=== PATIENT | male | born 1975 | race American Indian/Alaskan Native ===

== ENCOUNTER 2016-12-26 14:43 | Emergency (ER) | payer OTHER ==
[2016-12-26 14:58] VITALS: RESP 16; TEMP 97.8
[2016-12-26] MEDS ORDERED: Naproxen 550 mg Tab PO STA (15:28)
[2016-12-26] MEDS ORDERED: Neomycin/Polymyxin/Hydrocort Otic Susp (10 ml) AD STA (15:28)
--- NOTE | 2016-12-26 15:32 | ED PDOC ---
Arrival/HPI - General Chief Complaint: ENT Problem Time Seen by Provider: 12/26/16 15:05 Historian: Patient - History of Present Illness Narrative History of Present Illness (Text): 12/26/16 15:29 Patient w/ h/o Diabetes, controlled w/ diet & exercise, reports 2 day history of right ear pain, states symptoms developed after getting water in his right ear yesterday. Reports (-) recent URI symptoms, (-) drainiage, (+) decrease in hearing to R ear. Otherwise: (-) fever, (-) headache. Patient has no other complaints. Past Medical History - Provider Review Nursing Documentation Reviewed: Yes - Infectious Disease Hx of Infectious Diseases: None - Endocrine/Metabolic Hx Diabetes Mellitus Type 2: Yes - Psychiatric Hx Substance Use: No Family/Social History - Physician Review Nursing Documentation Reviewed: Yes Family/Social History: No Known Family HX Smoking Status: Never Smoked Hx Alcohol Use: Yes Frequency of alcohol use: Socially Hx Substance Use: No Allergies/Home Meds Allergies/Adverse Reactions: Allergies No Known Allergies Allergy (Verified 12/26/16 14:58) Review of Systems - Review of Systems Constitutional: Normal. absent: Fatigue, Weight Change, Fevers ENT: Normal, Other (R ear pain) Respiratory: Normal. absent: SOB, Cough, Sputum Musculoskeletal: Normal. absent: Arthralgias, Back Pain, Neck Pain Skin: Normal. absent: Rash, Pruritis, Skin Lesions Physical Exam - Physical Exam Narrative Physical Exam (Text): 12/26/16 15:31 GENERAL APPEARANCE: Patient is awake, alert, oriented x 3, in mild painful distress. SKIN: Warm, dry; (-) cyanosis. ENMT: Canals : (+) erythema, edema and exudates to the R ear canal, (+) cerumen impaction to the L ear canal, TMs: both not visible. Frontal / maxillary sinuses : (-) tenderness. (-) TMJ tenderness. Pharynx: Clear; (-) erythema, (- ) exudate. Airway patent: (-) stridor. NECK: (-) stiffness, (-) tenderness, (-) lymphadenopathy. LUNGS: clear, (-) wheezing, (-) rhonchi. CARDIAC: RRR, (-) murmurs, (-) gallops. Vital Signs Temp Pulse Resp BP Pulse Ox 12/26/16 14:54 97.8 F 100 H 16 120/70 98 Medical Decision Making ED Course and Treatment: 12/26/16 15:32 41 yo M w/ h/o Diabetes, controlled w/ diet & exercise, reports 2 day history of right ear pain, states symptoms developed after getting water in his right ear yesterday. On exam, patient is noted to have otitis externa to the right ear, unable to visualize the right TM, patient also has cerumen impaction to the left ear canal. Diagnosis of otitis externa explained to the patient. Patient medicated with naproxen po and Cortisporin otic. Prescriptions provided. Based on history , exam and diagnostic results plan will be for outpatient follow-up with ENT referral. Patient advised to follow up with primary care physician or ENT referral in 1-2 days without fail. Advised to take medication as prescribed. Return to the emergency room at any time for any new or worsening symptoms. Patient states he fully agrees with and understands discharge instructions. States that he agrees with the plan and disposition. Verbalized and repeated discharge instructions and plan. I have given the patient opportunity to ask any additional questions. - Medication Orders Current Medication Orders: Discontinued Medications Naproxen (Anaprox Ds) 550 mg PO ONCE STA Stop: 12/26/16 15:29 Last Admin: 12/26/16 15:51 Dose: 550 mg Neomycin/Polymyxin/Hydrocortisone (Cortisporin Otic Susp) 2 ml AD STAT STA Stop: 12/26/16 15:29 Last Admin: 12/26/16 15:51 Dose: 4 drop - PA / AUTOMOTIVE BRAKE TECHNICIAN / Resident Statement MD/DO has reviewed & agrees with the documentation as recorded. Disposition/Present on Arrival - Present on Arrival Any Indicators Present on Arrival: No History of DVT/PE: No History of Uncontrolled Diabetes: No Urinary Catheter: No History of Decub. Ulcer: No History Surgical Site Infection Following: None - Disposition Have Diagnosis and Disposition been Completed?: Yes Diagnosis: Impacted cerumen of left ear, Otitis externa of right ear Disposition: HOME/ ROUTINE Disposition Time: 15:35 Patient Plan: Discharge Patient Problems: Current Active Problems Problem Status Onset Impacted cerumen of left ear Acute Otitis externa of right ear Acute Condition: STABLE Discharge Instructions (ExitCare): Otitis Externa (ED), Cerumen Impaction (ED) Print Language: AUSTRIAN Additional Instructions: Thank you for letting us take care of you today. You were treated for otitis externa, cerumen impaction. The emergency medical care you received today was directed at your acute symptoms. If you were prescribed any medication, please fill it and take as directed. It may take several days for your symptoms to resolve. Return to the Emergency Department if your symptoms worsen, do not improve, or if you have any other problems. Please contact your doctor in 2 days for re-evaluation and follow up / or call one of the physicians/clinics you have been referred to that are listed on the Patient Visit Information form that is included in your discharge packet. Bring any paperwork you were given at discharge with you along with any medications you are taking to your follow up visit. Our treatment cannot replace ongoing medical care by a primary care provider (PCP) outside of the emergency department. Thank you for allowing the [facility] team to be part of your care today. Prescriptions: Amoxicillin 500 mg PO TID #30 tablet Carbamide Peroxide [Debrox 15 Ml] 5 drop BID #1 bottle Naproxen 500 mg PO BID #30 tab Neomycin/Polymyxin/Hydrocort [Cortisporin Otic Soln] 4 drop AD QID #1 bottle Referrals: PCP,NO [Primary Care Provider] - Follow up with primary Alex Kaye DO [Staff Provider] - Follow up with primary Forms: [employer] (Chilean), WORK NOTE
[2016-12-26 17:27] VITALS: BP 124/76; PULSE 72; O2SAT 100
== END 2016-12-26 15:54 | disposition home or self-care (01) ==
LOC: ED 14:43 → MERGE 14:43 → ED 15:54
DX: H61.22 Impacted cerumen, left ear (principal); H60.91 Unspecified otitis externa, right ear

== ENCOUNTER 2017-02-16 08:15 | Emergency (ER) | payer MEDICAID, OTHER ==
[2017-02-16 08:15] VITALS: BMI 32.8
[2017-02-16 08:28] VITALS: O2SAT 100
[2017-02-16] MEDS ORDERED: Sodium Chloride 0.9% 1,000 ML IV STA (08:35)
--- NOTE | 2017-02-16 08:41 | ED PDOC ---
Arrival/HPI - General Historian: Patient - History of Present Illness Time/Duration: > month Symptom Onset: Gradual Symptom Course: Unchanged Context: Home - General Chief Complaint: High Blood Sugar Time Seen by Provider: 02/16/17 08:17 - History of Present Illness Narrative History of Present Illness (Text): 02/16/17 08:36 41yo M PMH DM2 who presents to emergency department because he feels that his blood sugar was too high. pt has been non-compliant with his metformin and glyburide in 8 months due to insurance issues. pt states the has been been feeling weak lately. denies chest pain, shortness of breath, abdominal pain, n/v /d, recent illness, fevers/chill, neck/back pain, urinary/bowel changes. Pt has no PMD. Denies tobacco and substance use; +occasional ETOH use (Moo Stinson) Past Medical History - Provider Review Nursing Documentation Reviewed: Yes - Infectious Disease Hx of Infectious Diseases: None - Cardiac Hx Cardiac Disorders: No - Pulmonary Hx Respiratory Disorders: No - Neurological Hx Neurological Disorder: No - HEENT Hx HEENT Disorder: No - Renal Hx Renal Disorder: No - Endocrine/Metabolic Hx Diabetes Mellitus Type 2: Yes - Hematological/Oncological Hx Blood Disorders: No - Integumentary Hx Dermatological Disorder: No - Musculoskeletal/Rheumatological Hx Musculoskeletal Disorders: No - Gastrointestinal Hx Gastrointestinal Disorders: No - Genitourinary/Gynecological Hx Genitourinary Disorders: No - Psychiatric Hx Psychophysiologic Disorder: No Hx Substance Use: No - Past Surgical History Past Surgical History: No Previous - Anesthesia Hx Anesthesia: No Family/Social History - Physician Review Nursing Documentation Reviewed: Yes Family/Social History: No Known Family HX Smoking Status: Never Smoked Hx Alcohol Use: Yes Frequency of alcohol use: Socially Hx Substance Use: No Allergies/Home Meds Allergies/Adverse Reactions: Allergies No Known Allergies Allergy (Verified 03/28/16 17:21) Review of Systems - Physician Review All systems were reviewed & negative as marked: Yes - Review of Systems Constitutional: Other (generalized weakness). absent: Fevers Respiratory: absent: SOB Cardiovascular: absent: Chest Pain Gastrointestinal: absent: Abdominal Pain, Diarrhea, Nausea, Vomiting Genitourinary Male: absent: Dysuria Physical Exam Vital Signs Reviewed: Yes Appearance: Positive for: Well-Appearing Pain Distress: None Mental Status: Positive for: Alert and Oriented X 3 Finger Stick Blood Glucose: 313 - Systems Exam Head: Present: Atraumatic, Normocephalic Pupils: Present: PERRL Extroacular Muscles: Present: EOMI Conjunctiva: Present: Normal Mouth: Present: Moist Mucous Membranes Neck: Present: Normal Range of Motion Respiratory/Chest: Present: Clear to Auscultation, Good Air Exchange Cardiovascular: Present: Regular Rate and Rhythm, Normal S1, S2 Abdomen: Present: Normal Bowel Sounds. No: Tenderness, Distention Back: Present: Normal Inspection. No: CVA Tenderness Upper Extremity: Present: Normal Inspection Lower Extremity: Present: Normal Inspection. No: Edema Neurological: Present: CN II-XII Intact, Speech Normal, Motor Func Grossly Intact, Normal Sensory Function Skin: Present: Warm, Dry Psychiatric: Present: Alert, Oriented x 3 Vital Signs Temp Pulse Resp BP Pulse Ox 02/16/17 12:16 74 18 139/83 100 02/16/17 08:15 99.4 F 87 17 152/105 H 100 Medical Decision Making Re-evaluation Time: 10:31 Reassessment Condition: Re-examined, Improved - Lab Interpretations I have reviewed the lab results: Yes - EKG Interpretation Interpreted by ED Physician: Yes Type: 12 lead EKG ED Course and Treatment: 02/16/17 09:11 Seen and examined with the resident. History and physical examination reveals a gentleman who stopped all of his medications approximately 8 months ago because of insurance reasons. For the last several days he has had increasing thirst and polyuria. With generalized fatigue. (Antolin Dillard) 02/16/17 08:45 Impression: 41yo M presenting with hyperglycemia due to med non-compliance Plan: - Reassess and disposition - Labs - check AG - 1L NS - UA Progress Notes: 02/16/17 10:02 EKG: Ordered, reviewed, and independently interpreted the EKG. Rate : 77 BPM Rhythm : NSR w/ sinus arrhythmia Interpretation : No ST-segment elevations or depressions, no T-wave inversions, normal intervals. 02/16/17 10:32 Insulin 6u ordered. 02/16/17 12:01 Reassessment: pt feeling better. denies abdominal pain, n/v, chest pain or shortness of breath. is tolerating diet. will keep monitoring glucose. 02/16/17 12:22 Past emergency department notes show patient was on Metformin 1000mg BID and glyburide once daily. Patient cannot recall which pharmacy he picked up his meds from. isntructed to follow up with [facility] within 10 days and to strictly adhere to medication and measuring glucose at home (Moo Stinson) - Lab Interpretations Lab Results: 02/16/17 09:00 02/16/17 09:00 Lab Results 02/16/17 09:54: POC Glucose (mg/dL) 244 H 02/16/17 09:00: Sodium 135, Potassium 4.4, Chloride 97 L, Carbon Dioxide 26, Anion Gap 16, BUN 10, Creatinine 0.9, Est GFR ( Amer) > 60, Est GFR (Non- Af Amer) > 60, Random Glucose 347 H*, Calcium 9.5, Total Bilirubin 0.5, AST 21, ALT 32, Alkaline Phosphatase 97, Total Protein 7.1, Albumin 4.1, Globulin 2.9, Albumin/Globulin Ratio 1.4 02/16/17 09:00: Urine Color Yellow, Urine Appearance Clear, Urine pH 6.0, Ur Specific [place] 1.010, Urine Protein Negative, Urine Glucose (UA) >=1000, Urine Ketones 15 H, Urine Blood Negative, Urine Nitrate Negative, Urine Bilirubin Negative, Urine Urobilinogen 0.2, Ur Leukocyte Esterase Negative 02/16/17 09:00: WBC 6.1, RBC 5.31, Hgb 13.5 L, Hct 39.5 L, MCV 74.4 L, MCH 25.4 , MCHC 34.2, RDW 13.1, Plt Count 229, MPV 11.2 H, Gran % 69.1 H, Lymph % (Auto) 23.4, [place] % (Auto) 5.2, Eos % (Auto) 2.1, Baso % (Auto) 0.2, Gran # 4.22, Lymph # 1.4, [place] # 0.3, Eos # 0.1, Baso # 0.01 02/16/17 08:21: POC Glucose (mg/dL) 313 H - Medication Orders Current Medication Orders: Discontinued Medications Sodium Chloride (Sodium Chloride 0.9%) 1,000 mls @ 999 mls/hr IV .Q1H1M STA Stop: 02/16/17 09:35 Last Admin: 02/16/17 09:29 Dose: 999 mls/hr eMAR Start Stop Document 02/16/17 09:29 AB (Rec: 02/16/17 09:29 AB [id number]) Intravenous Solution Start Date 02/16/17 Start Time 09:29 End Date 02/16/17 End time 10:29 Total Infusion Time 60 Sodium Chloride (Sodium Chloride 0.9%) 1,000 mls @ 500 mls/hr IV ONCE ONE Stop: 02/16/17 11:54 Last Admin: 02/16/17 10:38 Dose: 500 mls/hr eMAR Start Stop Document 02/16/17 10:38 AB (Rec: 02/16/17 10:38 AB [id number]) Intravenous Solution Start Date 02/16/17 Start Time 10:38 End Date 02/16/17 End time 12:38 Total Infusion Time 120 Insulin Human Regular (Humulin R) 6 units SC ONCE STA Stop: 02/16/17 09:03 Last Admin: 02/16/17 09:24 Dose: 6 units Subcutaneous Administrations Document 02/16/17 09:24 AB (Rec: 02/16/17 09:29 AB [id number]) Injection Site MAR Injection Site Right Abdomen Charges for Administration # of Subcutaneous Administrations 1 Disposition/Present on Arrival - Present on Arrival Any Indicators Present on Arrival: No History of DVT/PE: No History of Uncontrolled Diabetes: No Urinary Catheter: No History of Decub. Ulcer: No History Surgical Site Infection Following: None - Disposition Have Diagnosis and Disposition been Completed?: Yes Disposition Time: 12:23 Patient Plan: Discharge - Disposition Diagnosis: Hyperglycemia Disposition: HOME/ ROUTINE Patient Problems: Current Active Problems Problem Status Onset Hyperglycemia Acute Condition: GOOD Discharge Instructions (ExitCare): Diabetic Hyperglycemia (ED), How to Check Your Blood Sugar (ED) Additional Instructions: - please follow up [facility] [place] 1 week - please take the medications as prescribed - please measure your blood sugar as instructed - please read the information attached and adhere to recommendations - Take the Glyburide 3 mg in the morning with your first meal of the day. This makes your pancreas secrete more insulin. - Take the Metformin 1000 mg TWICE a day with Breakfast and Dinner meals. This helps your body metabolize blood sugars better and keep sugars down - Measure your sugar with the prescribed glucometer - TRY to follow a more diabetic diet; 4-5 small meals with lower carbohydrates per day. Prescriptions: glyBURIDE [Glynase Pres-Tab] 3 mg PO DAILY #10 tab MetFORMIN [glucoPHAGE] 1,000 mg PO BID #20 tab Referrals: [facility] [Outside] - Follow up with primary Forms: [employer] (Jordanian)
[2017-02-16] MEDS ORDERED: Insulin Regular 1 UNITS/0.01 ML ML SC STA (09:02)
[2017-02-16 09:29] LABS: BASO # 0.01 K/mm3 (0.0-2.0); BASO % 0.2 % (0.0-3.0); EOS # 0.1 (0.0-0.7); EOS % 2.1 % (1.5-5.0); GRAN # 4.22 (1.4-6.5); GRAN % 69.1 % (50.0-68.0); HEMATOCRIT 39.5 % (42.0-52.0); LYMPH # 1.4 (1.2-3.4); LYMPH % 23.4 % (22.0-35.0); MEAN CELL VOLUME 74.4 fl (80.0-105.0); MEAN CORPUSCULAR HEMOGLOBIN 25.4 pg (25.0-35.0); MEAN CORPUSCULAR HGB CONC 34.2 g/dl (31.0-37.0); MEAN PLATELET VOLUME 11.2 fl (7.0-11.0); MONO # 0.3 (0.1-0.6); MONO % 5.2 % (1.0-6.0); RED CELL DISTRIBUTION WIDTH 13.1 % (11.5-14.5); URINE BILIRUBIN NEGATIVE (NEGATIVE); URINE BLOOD NEGATIVE (NEGATIVE); URINE GLUCOSE (UA) >=1000 mg/dL (NEGATIVE); URINE KETONE 15 mg/dL (NEGATIVE); URINE LEUKOCYTE ESTERASE NEGATIVE Leu/uL (NEGATIVE); URINE PROTEIN NEGATIVE mg/dL (<30 mg/dL); URINE UROBILINOGEN 0.2 E.U./dL (<1 E.U./dL); WHITE BLOOD COUNT 6.1 10^3/ul (4.5-11.0)
[2017-02-16 09:30] LABS: URINE APPEARANCE CLEAR (CLEAR); URINE COLOR YELLOW (YELLOW)
[2017-02-16 09:48] LABS: ALB/GLOB RATIO 1.4 (1.1-1.8); ALKALINE PHOSPHATASE 97 U/L (38-126); ALT/SGPT 32 U/L (7-56); AST/SGOT 21 U/L (17-59); BILIRUBIN,TOTAL 0.5 mg/dL (0.2-1.3); BLOOD UREA NITROGEN 10 mg/dL (7-21); CALCIUM 9.5 mg/dL (8.4-10.5); CARBON DIOXIDE 26 mmol/L (21-33); CHLORIDE 97 mmol/L (98-107); GFR AFRICAN-AMERICAN > 60; POTASSIUM 4.4 mmol/L (3.6-5.0); SODIUM 135 mmol/L (132-148); TOTAL PROTEIN 7.1 g/dL (5.8-8.3)
[2017-02-16] MEDS ORDERED: Sodium Chloride 0.9% 1,000 ML IV ONE (09:55)
[2017-02-16 09:59] LABS: GLUCOSE,RANDOM 347 mg/dL (70-110)
[2017-02-16 12:17] VITALS: BP 139/83; PULSE 74; RESP 18
[2017-02-16 12:44] VITALS: TEMP 98.2
--- NOTE | 2017-02-16 22:08 | CARD ---
APPROVED REPORT EKG Measurement Heart [id number] <Conclusion> Normal sinus rhythm with sinus arrhythmia Normal ECG
== END 2017-02-16 12:44 | disposition home or self-care (01) ==
LOC: ED 08:15
DX: E11.65 Type 2 diabetes mellitus with hyperglycemia (principal)
CPT/HCPCS: 80053; 81003; 82948; 85025; 93005; 96360; 96361; 99284; J7040

== ENCOUNTER 2018-04-01 17:51 | Observation (INO) | payer MEDICAID, OTHER ==
[2018-04-01 17:54] VITALS: BMI 31.8
[2018-04-01] MEDS ORDERED: Sodium Chloride 0.9% 1,000 ML IV STA (18:20)
--- NOTE | 2018-04-01 18:28 | ED PDOC ---
Arrival/HPI - General Chief Complaint: Chest Pain Historian: Patient, Spouse () - History of Present Illness Narrative History of Present Illness (Text): 04/01/18 18:18 A 42 year old male, whose past medical history includes diabetes, presents to the emergency department presenting with intermittent cramping in his finger for the past few days. Patient reports associated shortness of breath with exertion, increased urinary frequency, headache, slight neck pain, and states today he is experiencing left upper chest pain. Patient notes he has not been taking his diabetes medication due to unfavorable side effects and notes his family history includes heart problems on his mother's side. Patient denies any fever, chills, diarrhea, nausea, vomiting, urinary symptoms, back pain, dizziness, or any other complaints. No current PMD Time/Duration: 1 week (a few days) Symptom Onset: Gradual Symptom Course: Unchanged Severity Level: Moderate Activities at Onset: Light Context: Home Past Medical History - Provider Review Nursing Documentation Reviewed: Yes - Infectious Disease Hx of Infectious Diseases: None - Cardiac Hx Cardiac Disorders: No - Pulmonary Hx Respiratory Disorders: No - Neurological Hx Neurological Disorder: No - HEENT Hx HEENT Disorder: No - Renal Hx Renal Disorder: No - Endocrine/Metabolic Hx Diabetes Mellitus Type 2: Yes - Hematological/Oncological Hx Blood Disorders: No - Integumentary Hx Dermatological Disorder: No - Musculoskeletal/Rheumatological Hx Musculoskeletal Disorders: No - Gastrointestinal Hx Gastrointestinal Disorders: No - Genitourinary/Gynecological Hx Genitourinary Disorders: No - Psychiatric Hx Psychophysiologic Disorder: No Hx Substance Use: No - Past Surgical History Past Surgical History: No Previous - Anesthesia Hx Anesthesia: No Family/Social History - Physician Review Nursing Documentation Reviewed: Yes Family/Social History: Unknown Family HX Smoking Status: Never Smoked Hx Alcohol Use: Yes Hx Substance Use: No Allergies/Home Meds Allergies/Adverse Reactions: Allergies No Known Allergies Allergy (Verified 03/28/16 17:21) Review of Systems - Review of Systems Constitutional: Fatigue. absent: Fevers, Night Sweats Eyes: absent: Vision Changes ENT: absent: Hearing Changes, Sore Throat, Rhinorrhea Respiratory: SOB (shortness of breath with exertion) Cardiovascular: Chest Pain (left uppper chest pain). absent: Edema, Calf Pain, WALKER Gastrointestinal: absent: Abdominal Pain, Diarrhea, Nausea, Vomiting Genitourinary Male: Frequency (increased urinary frequency) Musculoskeletal: Neck Pain (slight neck pain), Other (bilateral cramping in fingers). absent: Back Pain Neurological: Headache. absent: Dizziness Endocrine: Polyuria, Polydipsia Hemo/Lymphatic: absent: Easy Bleeding Psychiatric: absent: Depression Physical Exam - Physical Exam Narrative Physical Exam (Text): 04/01/18 18:21 Head: Atraumatic. Normocephalic. Eyes: PERRL. EOMI. Conjunctivae are not pale. ENT: Mucous membranes are moist and intact. Oropharynx is clear and symmetric. Neck: Supple. Full ROM. No JVD. No lymphadenopathy. Cardiovascular: Regular rate. Regular rhythm. No murmurs, rubs, or gallops. Distal pulses are 2+ and symmetric. Pulmonary/Chest: No evidence of respiratory distress. Clear to auscultation bilaterally. No wheezing, rales or rhonchi. Chest wall nontender. Abdominal: Soft and non-distended. There is no tenderness. No rebound, guarding, or rigidity. No organomegaly. Good bowel sounds. Back: No CVA tenderness. Extremities: No edema. No cyanosis. No clubbing. Full range of motion in all extremities. No calf tenderness. Skin: Skin is warm and dry. No petechiae. No purpura. Neurological: Alert, awake, and oriented to person, place, time, and situation. Normal speech. No facial droop. No focal motor or sensory deficits. Psychiatric: Good eye contact. Normal interaction, affect, and behavior. Vital Signs Reviewed: Yes Vital Signs Temp Pulse Resp BP Pulse Ox 04/01/18 17:54 98.8 F 100 H 20 130/85 99 Temperature: Afebrile Blood Pressure: Normal Pulse: Tachycardic Respiratory Rate: Normal Appearance: Positive for: Well-Appearing, Non-Toxic Pain Distress: Mild Mental Status: Positive for: Alert and Oriented X 3 Medical Decision Making ED Course and Treatment: 04/01/18 18:23 Impression: 42 year old male presenting with intermittent cramping in fingers with associated shortness of breath. Developed intermittent chest discomfort today. Differential Diagnosis included but are not limited to: - Hyperglycemia - DKA - CAD - Electrolyte imbalance - Pneumonia Plan: -- ABG shock panel -- EKG -- Labs -- CBC -- COAGs -- Chest X-ray -- IV fluids -- Influenza A B stat -- Urinalysis -- Reassess and disposition Prior Visits: Notes and results from previous visits were reviewed. Progress Notes: Patient is hyperglycemic. Noncompliant with meds for several months. Current labs and exam NOT consistent with DKA although he is significantly hyperglycemic. IV fluids given. Currently comfortable at rest but reports dyspnea with exertion. Chest pain intermittently today but none currently. Plan to admit to telemetry observation for cardiac monitoring. Treatment plan reviewed with patient. 04/01/18 19:50 - EKG Interpretation EKG Interpretation (Text): 04/01/18 19:49 EKG at 1800 normal sinus rhythm rate of [address] elevations Interpreted by ED Physician: Yes Type: 12 lead EKG - Scribe Statement The provider has reviewed the documentation as recorded by the Scribe Herlinda Britton All medical record entries made by the Scribe were at my direction and personally dictated by me. I have reviewed the chart and agree that the record accurately reflects my personal performance of the history, physical exam, medical decision making, and the department course for this patient. I have also personally directed, reviewed, and agree with the discharge instructions and disposition. Disposition/Present on Arrival - Present on Arrival Any Indicators Present on Arrival: Yes History of DVT/PE: No History of Uncontrolled Diabetes: Yes Urinary Catheter: No History of Decub. Ulcer: No History Surgical Site Infection Following: None - Disposition Have Diagnosis and Disposition been Completed?: Yes Diagnosis: Hyperglycemia, Chest pain Disposition: HOSPITALIZED Disposition Time: 19:54 Patient Plan: Admission, Observation, Telemetry Patient Problems: Current Active Problems Problem Status Onset Chest pain Acute Hyperglycemia Acute Condition: FAIR Discharge Instructions (ExitCare): Chest Pain (ED) Referrals: Sandra Webb MD [Primary Care Provider] - Follow up with primary Forms: Over 40 Females (Russian)
[2018-04-01 19:05] LABS: HEMOGLOBIN 14.2 g/dL (14.0-18.0); MEAN CELL VOLUME 73.7 fl (80.0-105.0); MEAN CORPUSCULAR HEMOGLOBIN 25.4 pg (25.0-35.0); MEAN CORPUSCULAR HGB CONC 34.5 g/dl (31.0-37.0); MEAN PLATELET VOLUME 11.9 fl (7.0-11.0); RBC 5.58 10^6/uL (3.5-6.1); RED CELL DISTRIBUTION WIDTH 13.6 % (11.5-14.5); WHITE BLOOD COUNT 7.9 10^3/uL (4.5-11.0)
[2018-04-01 19:06] LABS: BASO # 0.02 K/mm3 (0.0-2.0); BASO % 0.3 % (0.0-3.0); EOS # 0.2 (0.0-0.7); EOS % 2.5 % (1.5-5.0); GRAN # 5.14 (1.4-6.5); GRAN % 64.7 % (50.0-68.0); LYMPH % 25.4 % (22.0-35.0); MONO # 0.6 (0.1-0.6); MONO % 7.1 % (1.0-6.0)
[2018-04-01 19:11] LABS: ARTERIAL BLOOD GAS HCO3 24.8 mmol/L (21-28); ARTERIAL BLOOD GAS PCO2 40 mm/Hg (35-45)
[2018-04-01 19:23] LABS: TROPONIN I < 0.01 ng/mL
[2018-04-01 19:31] LABS: ALB/GLOB RATIO 1.4 (1.1-1.8); ALBUMIN 4.1 g/dL (3.0-4.8); ALT/SGPT 32 U/L (7-56); AST/SGOT 25 U/L (17-59); BLOOD UREA NITROGEN 12 mg/dL (7-21); CALCIUM 9.4 mg/dL (8.4-10.5); GFR NON-AFRICAN AMERICAN > 60
[2018-04-01 19:33] LABS: INR 0.99; PARTIAL THROMBOPLASTIN TIME 26.2 Seconds (25.1-36.5); PROTHROMBIN TIME 11.3 SECONDS (9.4-12.5)
[2018-04-01 19:52] LABS: URINE BILIRUBIN NEGATIVE (NEGATIVE); URINE BLOOD NEGATIVE (NEGATIVE); URINE GLUCOSE (UA) >=1000 mg/dL (NEGATIVE); URINE LEUKOCYTE ESTERASE NEGATIVE Leu/uL (NEGATIVE); URINE PROTEIN NEGATIVE mg/dL (<30 mg/dL); URINE UROBILINOGEN 0.2 E.U./dL (<1 E.U./dL)
[2018-04-01 19:53] LABS: URINE APPEARANCE CLEAR (CLEAR); URINE COLOR LIGHT YELLOW (YELLOW)
[2018-04-01] MEDS ORDERED: Insulin Regular 1 UNITS/0.01 ML ML SC STA (20:03)
--- NOTE | 2018-04-01 20:07 | CARD ---
APPROVED REPORT Date of service: 04/01/2018 EKG Measurement Heart [id number] <Conclusion> Normal sinus rhythm Normal ECG
[2018-04-01] MEDS ORDERED: Dextrose 50% SYRINGE Inj (50 ml) IV PRN (20:40)
[2018-04-01 21:04] LABS: B-TYPE NATRIURETIC PEPTIDE < 11.1 pg/mL (0-450)
[2018-04-01 21:15] VITALS: O2SAT 98
[2018-04-01] MEDS: Insulin Lispro (humaLOG) MEDIUM Coverage SC SCH (22:25)
--- NOTE | 2018-04-01 22:27 | CP.PCM.HP ---
<Aureliano Tabares - Last Filed: 04/01/18 22:16> History of Present Illness - History of Present Illness History of Present Illness: Aureliano Tabares PGY1 H&P for Dr. Maldonado Pt is a 42M with PMH with DM, presenting with chest pain since 4pm today. He reports sharp L sided chest pain that is intermittent. He denies previous history of this chest pain. He was driving when this occurred. He denies loss of consciousness, dizziness, nausea, sweating, palpitations, or radiation of the pain. He also reports constipation, his baseline is 1-2 bowel movements per week, however he says over the past week his stools have been harder. He denies fever, chills, abdominal pain, vomiting, diarrhea, dysuria. SxH: denies SocH: denies tobacco, etoh, recreational drug use FamH: mom DM Allergies: NKDA Meds: denies PMD: formerly [place], lost f/u Present on Admission - Present on Admission Any Indicators Present on Admission: Yes History of Uncontrolled Diabetes: Yes Review of Systems - Review of Systems Review of Systems: as per HPI Past Patient History - Infectious Disease Hx of Infectious Diseases: None - Past Social History Smoking Status: Never Smoked - CARDIAC Hx Cardiac Disorders: No - PULMONARY Hx Respiratory Disorders: No - NEUROLOGICAL Hx Neurological Disorder: No - HEENT Hx HEENT Problems: No - RENAL Hx Chronic Kidney Disease: No - ENDOCRINE/METABOLIC Hx Diabetes Mellitus Type 2: Yes - HEMATOLOGICAL/ONCOLOGICAL Hx Blood Disorders: No - INTEGUMENTARY Hx Dermatological Problems: No - MUSCULOSKELETAL/RHEUMATOLOGICAL Hx Musculoskeletal Disorders: No - GASTROINTESTINAL Hx Gastrointestinal Disorders: No - GENITOURINARY/GYNECOLOGICAL Hx Genitourinary Disorders: No - PSYCHIATRIC Hx Psychophysiologic Disorder: No Hx Substance Use: No - SURGICAL HISTORY Hx Surgeries: No - ANESTHESIA Hx Anesthesia: No Meds Allergies/Adverse Reactions: Allergies Allergy/AdvReac Type Severity Reaction Status Date / Time No Known Allergies Allergy Verified 03/28/16 17:21 Physical Exam - Constitutional Appears: Well, No Acute Distress - Head Exam Head Exam: ATRAUMATIC, NORMOCEPHALIC - Eye Exam Eye Exam: EOMI, Normal appearance, PERRL Pupil Exam: NORMAL ACCOMODATION - ENT Exam ENT Exam: Mucous Membranes Moist, Normal Exam - Respiratory Exam Respiratory Exam: Clear to Auscultation Bilateral, NORMAL BREATHING PATTERN. absent: Rales, Rhonchi, Wheezes - Cardiovascular Exam Cardiovascular Exam: REGULAR RHYTHM, +S1, +S2. absent: Gallop, Rubs, Systolic Murmur - GI/Abdominal Exam GI & Abdominal Exam: Normal Bowel Sounds, Soft. absent: Distended, Tenderness - Extremities Exam Extremities exam: Positive for: normal inspection. Negative for: pedal edema - Back Exam Back exam: NORMAL INSPECTION - Neurological Exam Neurological exam: Alert, CN II-XII Intact, Oriented x3 - Psychiatric Exam Psychiatric exam: Normal Affect, Normal Mood - Skin Skin Exam: Normal Color Results - Vital Signs Recent Vital Signs: Last Vital Signs Temp 98.8 F 04/01/18 17:54 Pulse 82 04/01/18 21:00 Resp 18 04/01/18 21:00 BP 170/80 H 04/01/18 21:00 Pulse Ox 98 04/01/18 21:00 - Labs Result Diagrams: 04/01/18 18:30 04/01/18 18:30 Labs: Laboratory Results - last 24 hr 04/01/18 04/01/18 04/01/18 18:30 18:30 18:30 WBC 7.9 RBC 5.58 Hgb 14.2 Hct 41.1 L MCV 73.7 L MCH 25.4 MCHC 34.5 RDW 13.6 Plt Count 220 MPV 11.9 H Gran % 64.7 Lymph % (Auto) 25.4 White % (Auto) 7.1 H Eos % (Auto) 2.5 Baso % (Auto) 0.3 Gran # 5.14 Lymph # (Auto) 2.0 White # (Auto) 0.6 Eos # (Auto) 0.2 Baso # (Auto) 0.02 PT 11.3 INR 0.99 APTT 26.2 pCO2 pO2 HCO3 ABG pH ABG Total CO2 ABG O2 Saturation ABG Base Excess ABG Potassium Glucose Lactate FiO2 Sodium 132 Potassium 4.1 Chloride 96 L Carbon Dioxide 27 Anion Gap 13 BUN 12 Creatinine 0.9 Est GFR ( Amer) > 60 Est GFR (Non-Af Amer) > 60 POC Glucose (mg/dL) Random Glucose 366 H* Calcium 9.4 Total Bilirubin 0.4 AST 25 ALT 32 Alkaline Phosphatase 120 Lactate Dehydrogenase 355 Total Creatine Kinase 88 Troponin I < 0.01 NT-Pro-B Natriuret Pep < 11.1 Total Protein 7.2 Albumin 4.1 Globulin 3.0 Albumin/Globulin Ratio 1.4 TSH 3rd Generation Arterial Blood Potassium Urine Color Urine Appearance Urine pH Ur Specific Pfeifer Urine Protein Urine Glucose (UA) Urine Ketones Urine Blood Urine Nitrate Urine Bilirubin Urine Urobilinogen Ur Leukocyte Esterase Influenza Typ A,B (EIA) 04/01/18 04/01/18 04/01/18 18:30 18:58 19:08 WBC RBC Hgb Hct MCV MCH MCHC RDW Plt Count MPV Gran % Lymph % (Auto) White % (Auto) Eos % (Auto) Baso % (Auto) Gran # Lymph # (Auto) White # (Auto) Eos # (Auto) Baso # (Auto) PT INR APTT pCO2 40 pO2 81.0 HCO3 24.8 ABG pH 7.40 ABG Total CO2 26.0 ABG O2 Saturation 98.0 ABG Base Excess 0.0 ABG Potassium 3.5 L Glucose 365 H Lactate 1.3 FiO2 21.0 Sodium 133.0 Potassium Chloride 100.0 Carbon Dioxide Anion Gap BUN Creatinine Est GFR ( Amer) Est GFR (Non-Af Amer) POC Glucose (mg/dL) 338 H Random Glucose Calcium Total Bilirubin AST ALT Alkaline Phosphatase Lactate Dehydrogenase Total Creatine Kinase Troponin I NT-Pro-B Natriuret Pep Total Protein Albumin Globulin Albumin/Globulin Ratio TSH 3rd Generation Arterial Blood Potassium 3.5 L Urine Color Urine Appearance Urine pH Ur Specific Pfeifer Urine Protein Urine Glucose (UA) Urine Ketones Urine Blood Urine Nitrate Urine Bilirubin Urine Urobilinogen Ur Leukocyte Esterase Influenza Typ A,B (EIA) Negative for flu a/b 04/01/18 04/01/18 04/01/18 19:30 19:56 20:51 WBC RBC Hgb Hct MCV MCH MCHC RDW Plt Count MPV Gran % Lymph % (Auto) White % (Auto) Eos % (Auto) Baso % (Auto) Gran # Lymph # (Auto) White # (Auto) Eos # (Auto) Baso # (Auto) PT INR APTT pCO2 pO2 HCO3 ABG pH ABG Total CO2 ABG O2 Saturation ABG Base Excess ABG Potassium Glucose Lactate FiO2 Sodium Potassium Chloride Carbon Dioxide Anion Gap BUN Creatinine Est GFR ( Amer) Est GFR (Non-Af Amer) POC Glucose (mg/dL) 314 H Random Glucose Calcium Total Bilirubin AST ALT Alkaline Phosphatase Lactate Dehydrogenase Total Creatine Kinase Troponin I NT-Pro-B Natriuret Pep Total Protein Albumin Globulin Albumin/Globulin Ratio TSH 3rd Generation 1.70 Arterial Blood Potassium Urine Color Light yellow Urine Appearance Clear Urine pH 6.0 Ur Specific Pfeifer 1.010 Urine Protein Negative Urine Glucose (UA) >=1000 Urine Ketones Negative Urine Blood Negative Urine Nitrate Negative Urine Bilirubin Negative Urine Urobilinogen 0.2 Ur Leukocyte Esterase Negative Influenza Typ A,B (EIA) 04/01/18 22:08 WBC RBC Hgb Hct MCV MCH MCHC RDW Plt Count MPV Gran % Lymph % (Auto) White % (Auto) Eos % (Auto) Baso % (Auto) Gran # Lymph # (Auto) White # (Auto) Eos # (Auto) Baso # (Auto) PT INR APTT pCO2 pO2 HCO3 ABG pH ABG Total CO2 ABG O2 Saturation ABG Base Excess ABG Potassium Glucose Lactate FiO2 Sodium Potassium Chloride Carbon Dioxide Anion Gap BUN Creatinine Est GFR ( Amer) Est GFR (Non-Af Amer) POC Glucose (mg/dL) 280 H Random Glucose Calcium Total Bilirubin AST ALT Alkaline Phosphatase Lactate Dehydrogenase Total Creatine Kinase Troponin I NT-Pro-B Natriuret Pep Total Protein Albumin Globulin Albumin/Globulin Ratio TSH 3rd Generation Arterial Blood Potassium Urine Color Urine Appearance Urine pH Ur Specific Pfeifer Urine Protein Urine Glucose (UA) Urine Ketones Urine Blood Urine Nitrate Urine Bilirubin Urine Urobilinogen Ur Leukocyte Esterase Influenza Typ A,B (EIA) Assessment & Plan - Assessment and Plan (Free Text) Assessment: 42M with PMH with DM, presenting with chest pain admitted for observation for ACS r/o. Plan: Chest Pain ACS r/o - EKG: NSR - trop neg x1 - CXR: no active dz - Cardiology consulted, Dr. Plasencia - f/u recs DM - Glucose 366 in ED - given 6u insulin in ED - med dose sliding scale - hypoglycemia protocol - accuchecks ACHS - pt non compliant with meds - counseled on risks and complications of noncompliance in DM PPX GI: pepcid DVT: SCDs HHD, low CC Case reviewed with Dr. Maldonado <Gary Maldonado - Last Filed: 04/02/18 06:28> Results - Vital Signs Recent Vital Signs: Last Vital Signs Temp 98.2 F 04/02/18 00:01 Pulse 63 12/01/18 05:57 Resp 20 04/02/18 00:01 BP 137/84 04/02/18 00:01 Pulse Ox 98 04/01/18 21:00 - Labs Result Diagrams: 04/01/18 18:30 04/01/18 18:30 Labs: Laboratory Results - last 24 hr 04/01/18 04/01/18 04/01/18 18:30 18:30 18:30 WBC 7.9 RBC 5.58 Hgb 14.2 Hct 41.1 L MCV 73.7 L MCH 25.4 MCHC 34.5 RDW 13.6 Plt Count 220 MPV 11.9 H Gran % 64.7 Lymph % (Auto) 25.4 White % (Auto) 7.1 H Eos % (Auto) 2.5 Baso % (Auto) 0.3 Gran # 5.14 Lymph # (Auto) 2.0 White # (Auto) 0.6 Eos # (Auto) 0.2 Baso # (Auto) 0.02 PT 11.3 INR 0.99 APTT 26.2 pCO2 pO2 HCO3 ABG pH ABG Total CO2 ABG O2 Saturation ABG Base Excess ABG Potassium Glucose Lactate FiO2 Sodium 132 Potassium 4.1 Chloride 96 L Carbon Dioxide 27 Anion Gap 13 BUN 12 Creatinine 0.9 Est GFR ( Amer) > 60 Est GFR (Non-Af Amer) > 60 POC Glucose (mg/dL) Random Glucose 366 H* Calcium 9.4 Total Bilirubin 0.4 AST 25 ALT 32 Alkaline Phosphatase 120 Lactate Dehydrogenase 355 Total Creatine Kinase 88 Troponin I < 0.01 NT-Pro-B Natriuret Pep < 11.1 Total Protein 7.2 Albumin 4.1 Globulin 3.0 Albumin/Globulin Ratio 1.4 TSH 3rd Generation Arterial Blood Potassium Urine Color Urine Appearance Urine pH Ur Specific Pfeifer Urine Protein Urine Glucose (UA) Urine Ketones Urine Blood Urine Nitrate Urine Bilirubin Urine Urobilinogen Ur Leukocyte Esterase Influenza Typ A,B (EIA) 04/01/18 04/01/18 04/01/18 18:30 18:58 19:08 WBC RBC Hgb Hct MCV MCH MCHC RDW Plt Count MPV Gran % Lymph % (Auto) White % (Auto) Eos % (Auto) Baso % (Auto) Gran # Lymph # (Auto) White # (Auto) Eos # (Auto) Baso # (Auto) PT INR APTT pCO2 40 pO2 81.0 HCO3 24.8 ABG pH 7.40 ABG Total CO2 26.0 ABG O2 Saturation 98.0 ABG Base Excess 0.0 ABG Potassium 3.5 L Glucose 365 H Lactate 1.3 FiO2 21.0 Sodium 133.0 Potassium Chloride 100.0 Carbon Dioxide Anion Gap BUN Creatinine Est GFR ( Amer) Est GFR (Non-Af Amer) POC Glucose (mg/dL) 338 H Random Glucose Calcium Total Bilirubin AST ALT Alkaline Phosphatase Lactate Dehydrogenase Total Creatine Kinase Troponin I NT-Pro-B Natriuret Pep Total Protein Albumin Globulin Albumin/Globulin Ratio TSH 3rd Generation Arterial Blood Potassium 3.5 L Urine Color Urine Appearance Urine pH Ur Specific Pfeifer Urine Protein Urine Glucose (UA) Urine Ketones Urine Blood Urine Nitrate Urine Bilirubin Urine Urobilinogen Ur Leukocyte Esterase Influenza Typ A,B (EIA) Negative for flu a/b 04/01/18 04/01/18 04/01/18 19:30 19:56 20:51 WBC RBC Hgb Hct MCV MCH MCHC RDW Plt Count MPV Gran % Lymph % (Auto) White % (Auto) Eos % (Auto) Baso % (Auto) Gran # Lymph # (Auto) White # (Auto) Eos # (Auto) Baso # (Auto) PT INR APTT pCO2 pO2 HCO3 ABG pH ABG Total CO2 ABG O2 Saturation ABG Base Excess ABG Potassium Glucose Lactate FiO2 Sodium Potassium Chloride Carbon Dioxide Anion Gap BUN Creatinine Est GFR ( Amer) Est GFR (Non-Af Amer) POC Glucose (mg/dL) 314 H Random Glucose Calcium Total Bilirubin AST ALT Alkaline Phosphatase Lactate Dehydrogenase Total Creatine Kinase Troponin I NT-Pro-B Natriuret Pep Total Protein Albumin Globulin Albumin/Globulin Ratio TSH 3rd Generation 1.70 Arterial Blood Potassium Urine Color Light yellow Urine Appearance Clear Urine pH 6.0 Ur Specific Pfeifer 1.010 Urine Protein Negative Urine Glucose (UA) >=1000 Urine Ketones Negative Urine Blood Negative Urine Nitrate Negative Urine Bilirubin Negative Urine Urobilinogen 0.2 Ur Leukocyte Esterase Negative Influenza Typ A,B (EIA) 04/01/18 04/01/18 21:17 22:08 WBC RBC Hgb Hct MCV MCH MCHC RDW Plt Count MPV Gran % Lymph % (Auto) White % (Auto) Eos % (Auto) Baso % (Auto) Gran # Lymph # (Auto) White # (Auto) Eos # (Auto) Baso # (Auto) PT INR APTT pCO2 pO2 HCO3 ABG pH ABG Total CO2 ABG O2 Saturation ABG Base Excess ABG Potassium Glucose Lactate FiO2 Sodium Potassium Chloride Carbon Dioxide Anion Gap BUN Creatinine Est GFR ( Amer) Est GFR (Non-Af Amer) POC Glucose (mg/dL) 297 H 280 H Random Glucose Calcium Total Bilirubin AST ALT Alkaline Phosphatase Lactate Dehydrogenase Total Creatine Kinase Troponin I NT-Pro-B Natriuret Pep Total Protein Albumin Globulin Albumin/Globulin Ratio TSH 3rd Generation Arterial Blood Potassium Urine Color Urine Appearance Urine pH Ur Specific Pfeifer Urine Protein Urine Glucose (UA) Urine Ketones Urine Blood Urine Nitrate Urine Bilirubin Urine Urobilinogen Ur Leukocyte Esterase Influenza Typ A,B (EIA) Attending/Attestation - Attestation I have personally seen and examined this patient.: Yes I have fully participated in the care of the patient.: Yes I have reviewed all pertinent clinical information: Yes
[2018-04-02] MEDS: Insulin Lispro (humaLOG) MEDIUM Coverage SC SCH ×2 (06:41→11:27)
[2018-04-02 07:28] LABS: INR 0.98; PARTIAL THROMBOPLASTIN TIME 25.8 Seconds (25.1-36.5); PROTHROMBIN TIME 11.3 SECONDS (9.4-12.5)
[2018-04-02 07:38] LABS: ALB/GLOB RATIO 1.3 (1.1-1.8); ALT/SGPT 26 U/L (7-56); AST/SGOT 16 U/L (17-59); BLOOD UREA NITROGEN 14 mg/dL (7-21); CALCIUM 9.2 mg/dL (8.4-10.5); GFR NON-AFRICAN AMERICAN > 60
[2018-04-02 08:27] LABS: BASO # 0.2 K/mm3 (0.0-2.0); BASO % 0.3 % (0.0-3.0); EOS # 0.2 (0.0-0.7); GRAN # 5.07 (1.4-6.5); GRAN % 66.2 % (50.0-68.0); HEMOGLOBIN 14.1 g/dL (14.0-18.0); LYMPH # 1.8 (1.2-3.4); LYMPH % 22.9 % (22.0-35.0); MEAN CELL VOLUME 74.3 fl (80.0-105.0); MEAN CORPUSCULAR HEMOGLOBIN 25.5 pg (25.0-35.0); MEAN CORPUSCULAR HGB CONC 34.4 g/dl (31.0-37.0); MEAN PLATELET VOLUME 11.5 fl (7.0-11.0); MONO # 0.6 (0.1-0.6); MONO % 7.6 % (1.0-6.0); RBC 5.52 10^6/uL (3.5-6.1); RED CELL DISTRIBUTION WIDTH 13.7 % (11.5-14.5); WHITE BLOOD COUNT 7.7 10^3/uL (4.5-11.0)
[2018-04-02 09:10] LABS: HDL CHOLESTEROL 32 mg/dL (29-60)
[2018-04-02 09:21] LABS: LDL CHOLESTEROL 101 mg/dL (0-129)
[2018-04-02] MEDS ORDERED: POLYETHYLENE GLYCOL 3350 17 GM/Dose PACKET PO SCH (10:30)
[2018-04-02 10:53] VITALS: PULSE 80
[2018-04-02 12:11] VITALS: BP 143/80; RESP 17; TEMP 97.8
--- NOTE | 2018-04-02 12:59 | RAD ---
Date of service: 04/01/2018 HISTORY: sob COMPARISON: No prior. FINDINGS: LUNGS: There appears to be some minimal linear atelectasis and or scarring left lower lobe. PLEURA: No significant pleural effusion identified, no pneumothorax apparent. CARDIOVASCULAR: No aortic atherosclerotic calcification present. Normal cardiac size. No pulmonary vascular congestion. OSSEOUS STRUCTURES: No significant abnormalities. VISUALIZED UPPER ABDOMEN: Normal. OTHER FINDINGS: None. IMPRESSION: Suspect minimal linear atelectasis and or scarring left lung base
--- NOTE | 2018-04-02 13:55 | CON ---
DATE OF CONSULTATION: 04/02/2018 REQUESTING PHYSICIAN: Alivia Barger MD REASON FOR CONSULTATION: Chest pain. HISTORY: This is a 42-year-old male with a history of hypertension, who presents to the emergency room with complaints of chest discomfort. He has been diabetic for a number of years, but discontinued his metformin on his own recently as he states that he did not feel well in taking it. He describes a sharp left-sided chest pain, which occurred at rest. He had some associated dyspnea. He cannot identify any precipitating or relieving factors. He recently returned home from work when his pain began. In the emergency room, his electrocardiogram was unremarkable and cardiac enzymes have been negative. He has no prior cardiac history. He believes he is not hypertensive. He does not smoke. He believes his cholesterol is normal. His mother had some unspecified cardiac issues many years ago, but remains alive and well. PAST HISTORY: Notable only for the problems mentioned above. He had previously been on metformin, but was not taking this regularly. FAMILY HISTORY: Unremarkable for premature heart disease. SOCIAL HISTORY: He lives with his . He works as a tractor-wheat combine driver. He does not smoke. He denies alcohol abuse. ALLERGIES: NONE. REVIEW OF SYSTEMS: A 10-point review of systems is otherwise unremarkable. PHYSICAL EXAMINATION: GENERAL: He is a muscular appearing middle-aged man. VITAL SIGNS: His blood pressure is 130/86 with pulse of 90 and sinus. Respirations are 16. He is afebrile. HEENT: Normocephalic, atraumatic. NECK: Supple. No JVD noted. CHEST: Clear to auscultation and percussion. HEART: PMI in normal position. No pathological gallops noted. ABDOMEN: Soft, nontender, normoactive bowel sounds. EXTREMITIES: No edema. SKIN: Warm and dry. PSYCHIATRIC: Normal mood and affect. NEUROLOGIC: Alert and oriented x3. No gross motor or sensory deficits noted. DIAGNOSTIC DATA: Potassium 5.0. BUN and creatinine 14 and 1.0. Glucose 293. White count 7.9, hemoglobin and hematocrit 14.2 and 41.1 with a platelet count of 220,000. Troponin is not detected. CK was 88. His electrocardiogram reveals sinus rhythm with no significant abnormalities. Chest x-ray reveals normal cardiac silhouette with clear lung christian. IMPRESSION: 1. Atypical chest pain, doubt cardiac ischemia. 2. Poorly controlled diabetes secondary to medical noncompliance. RECOMMENDATIONS: Followup cardiac enzymes are pending. Assuming this is negative, discharge home would be reasonable at this time. No further cardiac workup appears necessary given his atypical pain. He will need a stress test in the future given his risk factor of diabetes; however, symptoms do not appear ischemic in nature this time. A lipid profile has been ordered. Hemoglobin A1c is pending. The need for compliance with medications and dietary advice regarding his diabetes was strongly encouraged. The risk of eventual cardiovascular complications as well as potential renal disease and visual problems secondary to diabetes was discussed at length with him. Regular exercise and healthy diet were encouraged. Thank you for this consultation. We will be happy to see him as needed. Ted Montoya MD
--- NOTE | 2018-04-02 15:58 | CP.PCM.DIS ---
<Rustam Martinez - Last Filed: 04/02/18 15:53> Provider - Provider Date of Admission: 04/01/18 20:04 Attending physician: Alivia Barger MD Primary care physician: Sandra Crump MD Consults: 04/01/18 20:40 Cardiology Consult Stat Comment: Consulting Provider: Raymundo Plasencia Consulting Physician: Raymundo Plasencia Reason for Consult: pt with chest pain 04/02/18 00:35 Diabetic Education Referral Routine Comment: pt non compliance with medication and diet Physician Instructions: Reason For Exam: protocol Time Spent in preparation of Discharge (in minutes): 51 Diagnosis - Discharge Diagnosis (1) Diabetes mellitus Status: Chronic (2) Chest pain Status: Acute (3) Hyperglycemia Status: Acute Hospital Course - Lab Results Lab Results: Most Recent Lab Values WBC 7.7 10^3/uL (4.5-11.0) 04/02/18 07:00 RBC 5.52 10^6/uL (3.5-6.1) 04/02/18 07:00 Hgb 14.1 g/dL (14.0-18.0) 04/02/18 07:00 Hct 41.0 % (42.0-52.0) L 04/02/18 07:00 MCV 74.3 fl (80.0-105.0) L 04/02/18 07:00 MCH 25.5 pg (25.0-35.0) 04/02/18 07:00 MCHC 34.4 g/dl (31.0-37.0) 04/02/18 07:00 RDW 13.7 % (11.5-14.5) 04/02/18 07:00 Plt Count 201 10^3/uL (120.0-450.0) 04/02/18 07:00 MPV 11.5 fl (7.0-11.0) H 04/02/18 07:00 Gran % 66.2 % (50.0-68.0) 04/02/18 07:00 Lymph % (Auto) 22.9 % (22.0-35.0) 04/02/18 07:00 [place] % (Auto) 7.6 % (1.0-6.0) H 04/02/18 07:00 Eos % (Auto) 3.0 % (1.5-5.0) 04/02/18 07:00 Baso % (Auto) 0.3 % (0.0-3.0) 04/02/18 07:00 Gran # 5.07 (1.4-6.5) 04/02/18 07:00 Lymph # (Auto) 1.8 (1.2-3.4) 04/02/18 07:00 [place] # (Auto) 0.6 (0.1-0.6) 04/02/18 07:00 Eos # (Auto) 0.2 (0.0-0.7) 04/02/18 07:00 Baso # (Auto) 0.20 K/mm3 (0.0-2.0) 04/02/18 07:00 PT 11.3 SECONDS (9.4-12.5) 04/02/18 07:00 INR 0.98 04/02/18 07:00 APTT 25.8 Seconds (25.1-36.5) 04/02/18 07:00 pCO2 40 mm/Hg (35-45) 04/01/18 19:08 pO2 81.0 mm/Hg (80-100) 04/01/18 19:08 HCO3 24.8 mmol/L (21-28) 04/01/18 19:08 ABG pH 7.40 (7.35-7.45) 04/01/18 19:08 ABG Total CO2 26.0 mmol.L (22-28) 04/01/18 19:08 ABG O2 Saturation 98.0 % (95-98) 04/01/18 19:08 ABG Base Excess 0.0 mmol/L (-2.0-3.0) 04/01/18 19:08 ABG Potassium 3.5 mmol/L (3.6-5.2) L 04/01/18 19:08 Sodium 133.0 mmol/L (132-148) 04/01/18 19:08 Chloride 100.0 mmol/L (98-107) 04/01/18 19:08 Glucose 365 mg/dl (75-110) H 04/01/18 19:08 Lactate 1.3 mmol/L (0.7-2.1) 04/01/18 19:08 FiO2 21.0 % 04/01/18 19:08 Sodium 135 mmol/L (132-148) 04/02/18 07:00 Potassium 5.0 mmol/L (3.6-5.0) 04/02/18 07:00 Chloride 100 mmol/L (98-107) 04/02/18 07:00 Carbon Dioxide 28 mmol/L (21-33) 04/02/18 07:00 Anion Gap 12 (10-20) 04/02/18 07:00 BUN 14 mg/dL (7-21) 04/02/18 07:00 Creatinine 1.0 mg/dl (0.8-1.5) 04/02/18 07:00 Est GFR ( Amer) > 60 04/02/18 07:00 Est GFR (Non-Af Amer) > 60 04/02/18 07:00 POC Glucose (mg/dL) 222 mg/dL (65-110) H 04/02/18 11:10 Random Glucose 293 mg/dL (70-110) H 04/02/18 07:00 Calcium 9.2 mg/dL (8.4-10.5) 04/02/18 07:00 Total Bilirubin 0.4 mg/dL (0.2-1.3) 04/02/18 07:00 AST 16 U/L (17-59) L D 04/02/18 07:00 ALT 26 U/L (7-56) 04/02/18 07:00 Alkaline Phosphatase 95 U/L (38-126) 04/02/18 07:00 Lactate Dehydrogenase 355 U/L (333-699) 04/01/18 18:30 Total Creatine Kinase 88 U/L (35-230) 04/01/18 18:30 Troponin I < 0.01 ng/mL 04/02/18 10:30 NT-Pro-B Natriuret Pep < 11.1 pg/mL (0-450) 04/01/18 18:30 Total Protein 7.0 g/dL (5.8-8.3) 04/02/18 07:00 Albumin 4.0 g/dL (3.0-4.8) 04/02/18 07:00 Globulin 3.0 gm/dL 04/02/18 07:00 Albumin/Globulin Ratio 1.3 (1.1-1.8) 04/02/18 07:00 Triglycerides 97 mg/dL (35-160) 04/02/18 08:10 Cholesterol 141 mg/dL (130-200) 04/02/18 08:10 LDL Cholesterol Direct 101 mg/dL (0-129) 04/02/18 08:10 HDL Cholesterol 32 mg/dL (29-60) 04/02/18 08:10 TSH 3rd Generation 1.70 mIU/mL (0.46-4.68) 04/01/18 20:51 Arterial Blood Potassium 3.5 mmol/L (3.6-5.2) L 04/01/18 19:08 Urine Color Light yellow (YELLOW) 04/01/18 19:30 Urine Appearance Clear (CLEAR) 04/01/18 19:30 Urine pH 6.0 (4.7-8.0) 04/01/18 19:30 Ur Specific May 1.010 (1.005-1.035) 04/01/18 19:30 Urine Protein Negative mg/dL (<30 mg/dL) 04/01/18 19:30 Urine Glucose (UA) >=1000 mg/dL (NEGATIVE) 04/01/18 19:30 Urine Ketones Negative mg/dL (NEGATIVE) 04/01/18 19:30 Urine Blood Negative (NEGATIVE) 04/01/18 19:30 Urine Nitrate Negative (NEGATIVE) 04/01/18 19:30 Urine Bilirubin Negative (NEGATIVE) 04/01/18 19:30 Urine Urobilinogen 0.2 E.U./dL (<1 E.U./dL) 04/01/18 19:30 Ur Leukocyte Esterase Negative Liyah/uL (NEGATIVE) 04/01/18 19:30 Influenza Typ A,B (EIA) Negative for flu a/b (NEGATIVE) 04/01/18 18:30 - Hospital Course Hospital Course: 42 year old male with a past medical history significant for DM2 who was presented with chest pain and was admitted to r/o ACS. Three serial troponin's were negative. EKG showed NSR. Chest X-Ray showed no active disease. Cardiology was consulted and cleared patient for discharge with primary care follow up. Patient has a history of DM2 and is on Metformin at home. He had elevated blood sugar in the ED and admitted he hasn't been taking his Metformin as it upsets his stomach. He was started on Glipizide 10mg BID with instructions to record his BS at home and to discuss this with his primary care doctor. He also complained of mild constipation and was discharged home on 04/02/2018 with a small supply of Colace and Miralax to be taken PRN for constipation. - Date & Time of H&P Date of H&P: 04/01/18 Time of H&P: 22:16 Discharge Exam - Head Exam Head Exam: ATRAUMATIC, NORMOCEPHALIC - Eye Exam Eye Exam: EOMI, Normal appearance, PERRL Pupil Exam: NORMAL ACCOMODATION, PERRL - ENT Exam ENT Exam: Normal Exam - Neck Exam Neck exam: Full Rom, Normal Inspection - Respiratory Exam Respiratory Exam: Clear to PA & Lateral, NORMAL BREATHING PATTERN, UNREMARKABLE - Cardiovascular Exam Cardiovascular Exam: REGULAR RHYTHM, RRR, +S1, +S2 - GI/Abdominal Exam GI & Abdominal Exam: Normal Bowel Sounds, Soft, Unremarkable - Extremities Exam Extremities exam: normal inspection - Neurological Exam Neurological exam: Alert, Normal Gait, Oriented x3 - Psychiatric Exam Psychiatric exam: Normal Affect, Normal Mood - Skin Skin Exam: Dry, Intact, Normal Color, Warm Discharge Plan - Discharge Medications Prescriptions: Docusate [Colace] 100 mg PO BID PRN #10 cap PRN Reason: Constipation GlipiZIDE [Glucotrol] 10 mg PO 0730,1630 #28 tab Polyethylene Glycol 3350 [Miralax] 17 gm PO DAILY PRN #10 packet PRN Reason: Constipation - Follow Up Plan Condition: FAIR Disposition: HOME/ ROUTINE Instructions: Chest Pain (DC), Blood Glucose Monitoring, Diabetic Hyperglycemia (DC) Additional Instructions: Please follow up with your primary care doctor within 3-5 days of being discharged from the hospital. Please discuss all medical issues addressed and any new medications that you have been started on during your admission. You have been started on a new medication for your diabetes. Please STOP taking Metformin. Please START taking Glipizide twice per day instead. Please take your blood sugar readings with each meal and before bed to present to your primary care doctor. You have been given a short supply of Colace (stool softener) and Miralax (pill for constipation) to be used as needed for constipation. Please only use for constipation NEEDED. Please take all medications as prescribed. If your symptoms return, please seek emergency medical attention immediately. Referrals: Sandra Crump MD [Primary Care Provider] - <Alivia Barger - Last Filed: 04/03/18 14:42> Provider - Provider Date of Admission: 04/01/18 20:04 Attending physician: Alivia Barger MD Primary care physician: Sandra Crump MD Consults: 04/01/18 20:40 Cardiology Consult Stat Comment: Consulting Provider: Raymundo Plasencia Consulting Physician: Raymundo Plasencia Reason for Consult: pt with chest pain 04/02/18 00:35 Diabetic Education Referral Routine Comment: pt non compliance with medication and diet Physician Instructions: Reason For Exam: protocol Hospital Course - Lab Results Lab Results: Most Recent Lab Values WBC 7.7 10^3/uL (4.5-11.0) 04/02/18 07:00 RBC 5.52 10^6/uL (3.5-6.1) 04/02/18 07:00 Hgb 14.1 g/dL (14.0-18.0) 04/02/18 07:00 Hct 41.0 % (42.0-52.0) L 04/02/18 07:00 MCV 74.3 fl (80.0-105.0) L 04/02/18 07:00 MCH 25.5 pg (25.0-35.0) 04/02/18 07:00 MCHC 34.4 g/dl (31.0-37.0) 04/02/18 07:00 RDW 13.7 % (11.5-14.5) 04/02/18 07:00 Plt Count 201 10^3/uL (120.0-450.0) 04/02/18 07:00 MPV 11.5 fl (7.0-11.0) H 04/02/18 07:00 Gran % 66.2 % (50.0-68.0) 04/02/18 07:00 Lymph % (Auto) 22.9 % (22.0-35.0) 04/02/18 07:00 [place] % (Auto) 7.6 % (1.0-6.0) H 04/02/18 07:00 Eos % (Auto) 3.0 % (1.5-5.0) 04/02/18 07:00 Baso % (Auto) 0.3 % (0.0-3.0) 04/02/18 07:00 Gran # 5.07 (1.4-6.5) 04/02/18 07:00 Lymph # (Auto) 1.8 (1.2-3.4) 04/02/18 07:00 [place] # (Auto) 0.6 (0.1-0.6) 04/02/18 07:00 Eos # (Auto) 0.2 (0.0-0.7) 04/02/18 07:00 Baso # (Auto) 0.20 K/mm3 (0.0-2.0) 04/02/18 07:00 PT 11.3 SECONDS (9.4-12.5) 04/02/18 07:00 INR 0.98 04/02/18 07:00 APTT 25.8 Seconds (25.1-36.5) 04/02/18 07:00 pCO2 40 mm/Hg (35-45) 04/01/18 19:08 pO2 81.0 mm/Hg (80-100) 04/01/18 19:08 HCO3 24.8 mmol/L (21-28) 04/01/18 19:08 ABG pH 7.40 (7.35-7.45) 04/01/18 19:08 ABG Total CO2 26.0 mmol.L (22-28) 04/01/18 19:08 ABG O2 Saturation 98.0 % (95-98) 04/01/18 19:08 ABG Base Excess 0.0 mmol/L (-2.0-3.0) 04/01/18 19:08 ABG Potassium 3.5 mmol/L (3.6-5.2) L 04/01/18 19:08 Sodium 133.0 mmol/L (132-148) 04/01/18 19:08 Chloride 100.0 mmol/L (98-107) 04/01/18 19:08 Glucose 365 mg/dl (75-110) H 04/01/18 19:08 Lactate 1.3 mmol/L (0.7-2.1) 04/01/18 19:08 FiO2 21.0 % 04/01/18 19:08 Sodium 135 mmol/L (132-148) 04/02/18 07:00 Potassium 5.0 mmol/L (3.6-5.0) 04/02/18 07:00 Chloride 100 mmol/L (98-107) 04/02/18 07:00 Carbon Dioxide 28 mmol/L (21-33) 04/02/18 07:00 Anion Gap 12 (10-20) 04/02/18 07:00 BUN 14 mg/dL (7-21) 04/02/18 07:00 Creatinine 1.0 mg/dl (0.8-1.5) 04/02/18 07:00 Est GFR ( Amer) > 60 04/02/18 07:00 Est GFR (Non-Af Amer) > 60 04/02/18 07:00 POC Glucose (mg/dL) 222 mg/dL (65-110) H 04/02/18 11:10 Random Glucose 293 mg/dL (70-110) H 04/02/18 07:00 Hemoglobin A1c 13.9 % (4.2-6.5) H 04/01/18 20:51 Calcium 9.2 mg/dL (8.4-10.5) 04/02/18 07:00 Total Bilirubin 0.4 mg/dL (0.2-1.3) 04/02/18 07:00 AST 16 U/L (17-59) L D 04/02/18 07:00 ALT 26 U/L (7-56) 04/02/18 07:00 Alkaline Phosphatase 95 U/L (38-126) 04/02/18 07:00 Lactate Dehydrogenase 355 U/L (333-699) 04/01/18 18:30 Total Creatine Kinase 88 U/L (35-230) 04/01/18 18:30 Troponin I < 0.01 ng/mL 04/02/18 10:30 NT-Pro-B Natriuret Pep < 11.1 pg/mL (0-450) 04/01/18 18:30 Total Protein 7.0 g/dL (5.8-8.3) 04/02/18 07:00 Albumin 4.0 g/dL (3.0-4.8) 04/02/18 07:00 Globulin 3.0 gm/dL 04/02/18 07:00 Albumin/Globulin Ratio 1.3 (1.1-1.8) 04/02/18 07:00 Triglycerides 97 mg/dL (35-160) 04/02/18 08:10 Cholesterol 141 mg/dL (130-200) 04/02/18 08:10 LDL Cholesterol Direct 101 mg/dL (0-129) 04/02/18 08:10 HDL Cholesterol 32 mg/dL (29-60) 04/02/18 08:10 TSH 3rd Generation 1.70 mIU/mL (0.46-4.68) 04/01/18 20:51 Arterial Blood Potassium 3.5 mmol/L (3.6-5.2) L 04/01/18 19:08 Urine Color Light yellow (YELLOW) 04/01/18 19:30 Urine Appearance Clear (CLEAR) 04/01/18 19:30 Urine pH 6.0 (4.7-8.0) 04/01/18 19:30 Ur Specific May 1.010 (1.005-1.035) 04/01/18 19:30 Urine Protein Negative mg/dL (<30 mg/dL) 04/01/18 19:30 Urine Glucose (UA) >=1000 mg/dL (NEGATIVE) 04/01/18 19:30 Urine Ketones Negative mg/dL (NEGATIVE) 04/01/18 19:30 Urine Blood Negative (NEGATIVE) 04/01/18 19:30 Urine Nitrate Negative (NEGATIVE) 04/01/18 19:30 Urine Bilirubin Negative (NEGATIVE) 04/01/18 19:30 Urine Urobilinogen 0.2 E.U./dL (<1 E.U./dL) 04/01/18 19:30 Ur Leukocyte Esterase Negative Liyah/uL (NEGATIVE) 04/01/18 19:30 Influenza Typ A,B (EIA) Negative for flu a/b (NEGATIVE) 04/01/18 18:30 Attending/Attestation - Attestation I have personally seen and examined this patient.: Yes I have fully participated in the care of the patient.: Yes I have reviewed all pertinent clinical information, including history, physical exam and plan: Yes Notes (Text): 04/03/18 14:38 Attending note; Patient seen and examined with resident. Patient is alert and awake. Denies any chest pain, shortness of breath. Denies any urinary or bowel complaints. Patient is a 42-year-old male with a past medical history of diabetes is admitted with nonspecific chest discomfort. Admitted for monitoring. EKG with no significant ST-T changes. cardiac enzymes negative. cardiology evaluation appreciated. Advised outpatient echocardiogram. Diabetes; patient is not taking metformin at home. Started on glipizide. Patient will be discharged home. Patient will follow up with PMD Dr. Amisha crump. The diagnosis, follow-up plan discussed with patient in detail.
== END 2018-04-02 14:30 | disposition home or self-care (01) ==
LOC: ED 17:51 → ERH 20:04 → 2RSO 21:45
PROVIDERS: ADMIT Internal Medicine; ATTEND Internal Medicine
DX: R07.89 Other chest pain (principal); E11.65 Type 2 diabetes mellitus with hyperglycemia; I10 Essential (primary) hypertension; K59.00 Constipation, unspecified; Z83.3 Family history of diabetes mellitus; Z91.19 Patient's noncompliance with other medical treatment and regimen
CPT/HCPCS: 36415; 71045; 80053; 80061; 81003; 82550; 82803; 82948; 83036; 83615; 83880; 84443; 84484; 85025; 85610; 85730; 87804; 93005; 96372; 99285; G0378; J7030